=== PATIENT | female | born 1995 | race Caucasian/White ===

== ENCOUNTER → 2021-02-06 16:08 | Outpatient (CLI) | payer OTHER, SELFPAY ==
--- NOTE | 2021-02-06 16:14 | DI.US.S_ITS ---
PROCEDURE: US OB <= 14 WEEKS FETUS INDICATIONS: Viability Dating OUTSIDE/PRIOR DATING DATA: Last menstrual period (LMP): 12/17/2020. LMP-based estimated date of delivery (TY): 09/23/2021. First dating scan (date and location): 02/06/2021. Estimated date of delivery (TY) from first dating scan: 09/20/2021. TECHNIQUE: Real-time scanning was performed of the fetus and maternal pelvic organs, with image documentation. Endovaginal scanning was also performed to better visualize the fetus and maternal ovaries. COMPARISON: None. FINDINGS: Embryo: A gestational sac with a live fetus is present with a heart rate of 155. [place]-rump length is 1.4 centimeters corresponding with an age of 7 weeks 5 days. Measurement variability in dating: +/- 4 weeks by LMP, +/- 7 days by mean sac diameter (use before 6 weeks gestation if crown-rump length not able to be measured), +/- 5 days by crown-rump length (up to 8 weeks 6 days gestation), +/- 7 days by crown-rump length (up to 13 weeks 6 days gestation). Maternal organs: Ovaries are normal bilaterally. . IMPRESSION: Single live intrauterine with an estimated gestational age of 7 weeks 5 days by crown-rump length. Dictated by: Emigdio Melendez M.D. on 02/07/2021 at 11:01 Approved by: Emigdio Melendez M.D. on 02/07/2021 at 11:05
== END ==
PROVIDERS: PCP Family Medicine; Referring Provider Family Medicine; Visit Provider Family Medicine
DX: Z34.81 Encounter for supervision of other normal pregnancy, first trimester (principal); Z3A.01 Less than 8 weeks gestation of pregnancy
CPT/HCPCS: 76801

== ENCOUNTER 2021-02-07 09:54 | Emergency (ER) | payer OTHER, SELFPAY ==
[2021-02-07 09:55] VITALS: BP 122/76; PULSE 90; RESP 18; TEMP 36.9; O2SAT 98; BMI 32.4
--- NOTE | 2021-02-07 10:06 | ED.NAVMDI ---
HPI - Nausea/Vomiting/Diarrhea General Chief complaint: Nausea/Vomiting/Diarrhea Stated complaint: PUKING FOR OVER 24 HRS Time Seen by Provider: 02/07/21 10:01 Source: patient Mode of arrival: Ambulatory Limitations: no limitations History of Present Illness HPI Narrative: 25-year-old female nonsmoker without significant medical history is a at 8 weeks and just had reassuring ultrasound yesterday. She states that she has had persistent nausea and significant vomiting for almost the entire duration of this . She had similar trouble with her 1st but states it is slightly worse this time. She denies any pain or fever or chills. She denies any bloody vomit. She is not dizzy but does feel a bit weak and fatigued she has had no chest pain or shortness of breath. She has no abdominal or pelvic pain, bleeding, spotting, leakage of fluids, dysuria, frequency or urgency. She has not had any hospital visits for this during the thus far. MD complaint: nausea and vomiting Onset (ago): day(s) Description of Vomiting: food contents Description of Diarrhea: none Associated Abdominal Pain: No Severity: moderate Relieving factors: none Exacerbating factors: none Related Data Previous Rx's Medication Instructions Recorded ondansetron 4 mg PO TID-QID PRN #10 tab 02/07/21 Allergies Allergy/AdvReac Type Severity Reaction Status Date / Time No Known Drug Allergies Allergy Verified 02/07/21 10:03 Review of Systems Constitutional Constitutional: Denies chills, Denies fatigue, Denies fever(s), Denies frequent falls, Denies lethargy and Denies weakness Eyes Eyes: Denies change in vision, Denies eye discharge, Denies irritation and Denies loss of vision ENT Ears, Nose, Mouth, and Throat: Denies change in voice, Denies dizziness, Denies neck pain, Denies sore throat and Denies throat swelling Cardiovascular Cardiovascular: Denies chest pain, Denies irregular heart rhythm, Denies lightheadedness, Denies palpitations, Denies dyspnea, Denies dyspnea on exertion and Denies orthopnea Respiratory Respiratory: Denies cough, Denies dyspnea, Denies dyspnea on exertion and Denies wheezing Gastrointestinal Gastrointestinal: Denies abdominal pain, Denies change in bowel habits, Denies diarrhea, Reports nausea and Reports vomiting Musculoskeletal Musculoskeletal: Denies neck pain and Denies numbness Integumentary/Breasts Skin/Breast: Denies pruritus, Denies erythema, Denies rash and Denies wounds Neurologic Neurologic: Denies behavioral changes, Denies confusion, Denies dizziness, Denies frequent falls, Denies loss of vision, Denies numbness and Denies weakness Psychiatric Psychiatric: Denies anxiety, Denies behavioral changes, Denies confusion, Denies depression, Denies homicidal ideation and Denies suicidal ideation Endocrine Endocrine: Denies fatigue, Denies flushing and Denies palpitations Hematologic/Lymphatic Hematologic/Lymphatic: Denies easy bruising Allergic/Immunologic Allergic/Immunologic: Denies urticaria, Denies throat swelling and Denies wheezing Patient History Social History Smoking Status: Never smoker Smoking Status: Never smoker alcohol intake frequency: other Substance Use Type: does not use Exam Narrative Exam Narrative: GENERAL: [25] year old patient appears stated age. Well-nourished, well-developed patient, in mild distress. HEAD: Atraumatic. Normocephalic. EYES: Pupils equal round and reactive. Extraocular motions intact. No scleral icterus. No injection or drainage. ENT: Dry mucous membrane Nose without bleeding, purulent drainage. Throat without erythema, tonsillar hypertrophy or exudate. Airway patent. NECK: Trachea midline. Non tender CARDIOVASCULAR: Regular rate and rhythm without murmurs, gallops, or rubs. RESPIRATORY: Clear to auscultation. Breath sounds equal bilaterally. No wheezes, rales, or rhonchi. GASTROINTESTINAL: Abdomen soft, non-tender, nondistended. EXTREMITIES: No edema or joint tenderness. BACK: Nontender without deformity or crepitance. No flank tenderness. NEURO: AOx3. SKIN: No rash or erythema of visible areas Initial Vital Signs Initial Vital Signs: Vital Signs Temperature 98.5 F 02/07/21 09:55 Pulse Rate 90 02/07/21 09:55 Respiratory Rate 18 02/07/21 09:55 Blood Pressure 122/76 02/07/21 09:55 Pulse Oximetry 98 02/07/21 09:55 Course Orders Ordered: Discontinued Medications Sodium Chloride (Normal Saline 0.9%) 1,000 mls @ 1,000 mls/hr IV BOLUS ONE Stop: 02/07/21 11:00 Last Infusion: 02/07/21 11:51 Dose: 0 mls/hr Documented by: Admin: 02/07/21 10:15 Dose: 1,000 mls/hr Documented by: RACHELLE Ondansetron HCl (Ondansetron 4 Mg/2 Ml Inj) 4 mg IV NOW ONE Stop: 02/07/21 10:02 Last Admin: 02/07/21 10:16 Dose: 4 mg Documented by: RACHELLE Vital Signs Vital signs: Vital Signs - 8 hr 02/07/21 09:55 Temperature 98.5 F Pulse Rate 90 Respiratory Rate 18 Blood Pressure 122/76 Pulse Oximetry 98 MDM - Nausea/Vomiting/Diarrhea Lab Data Result diagrams: 02/07/21 10:13 02/07/21 10:13 Labs: Lab Results 02/07/21 02/07/21 Range/Units 10:13 10:13 WBC 10.9 (4.5-11.0) X10^3/uL RBC 4.51 (4.0-5.2) X10^6/uL Hgb 13.4 (12.0-16.0) g/dL Hct 38.9 (36-46) % MCV 86.3 (80-100) fL MCH 29.6 (26-34) PG MCHC 34.3 (30-36) % RDW 13.4 (11.6-14.8) % Plt Count 318 (150-400) X10^3/uL Neut % (Auto) 70.7 (50-75) % Lymph % (Auto) 22.1 L (25-40) % [place] % (Auto) 5.4 (3-14) % Eos % (Auto) 1.0 L (2-4) % Baso % (Auto) 0.8 (0-2) % Neut # (Auto) 7700 H (3584-6083) /uL Lymph # (Auto) 2400 (2494-9042) /uL [place] # (Auto) 600 (0-900) /uL Eos # (Auto) 100 (0-450) /uL Baso # (Auto) 100 (0-100) /uL Sodium 137 (137-145) mmol/L Potassium 3.8 (3.4-5.1) mmol/L Chloride 106 (98-107) mmol/L Carbon Dioxide 21 L (22-32) mmol/L BUN 9 (7-17) mg/dL Creatinine 0.49 L (0.52-1.04) mg/dL Estimated GFR > 60.0 (>60) mL/min BUN/Creatinine Ratio 18.4 (6-22) Glucose 96 (70-100) mg/dL Calcium 9.5 (8.4-10.2) mg/dL Ketones 0.36 H (<0.27) mmol/L Discharge Plan Departure Patient Disposition: Home Clinical Impression: Vomiting and diarrhea Instructions: DI for Hyperemesis Gravidarum, DI for Vomiting -- Adult Activity Restrictions/Additional Instructions: *You have been diagnosed with [vomiting and mild dehydration] *What to do: *Please continue to take your regular medications as directed. [x ] New medication prescriptions sent to your pharmacy: [[facility] in [place] ] [ ] New medication written as a paper prescription [ ] No new medications given *Please follow up with your primary care provider in 2-3 days, call for an appointment. Let them know you were seen in the Emergency Department and that we ask that you be seen in follow up. We will electronically transmit a record of today's note if your PCP is in our system *If you do not have a primary care provider please contact the [facility] Resource line at [phone]. They will ask some questions about your medical history and help get you set up with a doctor in the community. *Return to Emergency Department if you should have any new, worsening or concerning symptoms, such as [fever greater than 101 F, shaking chills, worsening pain, persistent vomiting or other bothersome symptoms] Prescriptions: New ondansetron 4 mg tablet,disintegrating 4 mg PO TID-QID PRN (Reason: nausea and vomiting) Qty: 10 RF: 0 Referrals: Brynn Amor DO [Primary Care Provider] -
[2021-02-07] MEDS: SODIUM CHLORIDE 0.9% 1,000 ML 1000 ML IV (10:15)
[2021-02-07] MEDS: ONDANSETRON 4 MG/2 ML INJ IV (10:16)
[2021-02-07 10:18] LABS: Add Manual Diff / Slide Review NO; Basophils Absolute Auto 100 /uL (0-100); Basophils Percent Auto 0.8 % (0-2); Eosinophils Absolute Auto 100 /uL (0-450); Hematocrit 38.9 % (36-46); Hemoglobin 13.4 g/dL (12.0-16.0); Lymphocytes Absolute Auto 2400 /uL (1100-4500); Lymphocytes Percent Auto 22.1 % (25-40); Mean Corpuscular HGB Conc 34.3 % (30-36); Mean Corpuscular Hemoglobin 29.6 PG (26-34); Mean Corpuscular Volume 86.3 fL (80-100); Monocytes Absolute Auto 600 /uL (0-900); Monocytes Percent Auto 5.4 % (3-14); Neutrophils Absolute Auto 7700 /uL (1500-7000); Neutrophils Percent Auto 70.7 % (50-75); Platelet Count 318 X10^3/uL (150-400); Red Blood Cell Count 4.51 X10^6/uL (4.0-5.2); Red Cell Distribution Width 13.4 % (11.6-14.8); White Blood Cell Count 10.9 X10^3/uL (4.5-11.0)
[2021-02-07 10:28] LABS: BUN Creatinine Ratio 18.4 (6-22); Blood Urea Nitrogen 9 mg/dL (7-17); Calcium 9.5 mg/dL (8.4-10.2); Carbon Dioxide 21 mmol/L (22-32); Chloride 106 mmol/L (98-107); Estimated Glomerular Filt Rate > 60.0 mL/min (>60); Glucose 96 mg/dL (70-100); HEMOLYSIS < 15 (0-50); Potassium 3.8 mmol/L (3.4-5.1); Sodium 137 mmol/L (137-145)
[2021-02-07 10:30] VITALS: BP 110/59; PULSE 86; O2SAT 98
[2021-02-07 10:31] LABS: Ketones (Beta-Hydroxybutyrate) 0.36 mmol/L (<0.27)
[2021-02-07 11:00] VITALS: BP 107/63; PULSE 84; O2SAT 100
[2021-02-07 11:30] VITALS: BP 106/59; PULSE 79; O2SAT 100
== END 2021-02-07 11:52 | disposition home or self-care (01) ==
PROVIDERS: Emergency Provider Emergency Medicine; PCP Family Medicine
DX: O21.9 Vomiting of pregnancy, unspecified (principal); R19.7 Diarrhea, unspecified; Z3A.08 8 weeks gestation of pregnancy
CPT/HCPCS: 36415; 80048; 82009; 85025; 96361; 96374; 99284; J2405

== ENCOUNTER 2021-03-26 11:31 | Emergency (ER) | payer OTHER, SELFPAY ==
[2021-03-26] VITALS (7 sets, daily range): BP systolic 95–115; BP diastolic 56–86; PULSE 83–95; RESP 15; TEMP 36.6; O2SAT 97–98; BMI 32.1
[2021-03-26 11:56] LABS: Add Manual Diff / Slide Review NO; Basophils Absolute Auto 100 /uL (0-100); Basophils Percent Auto 0.8 % (0-2); Eosinophils Absolute Auto 100 /uL (0-450); Hematocrit 39.5 % (36-46); Hemoglobin 13.3 g/dL (12.0-16.0); Lymphocytes Absolute Auto 2700 /uL (1100-4500); Lymphocytes Percent Auto 23.6 % (25-40); Mean Corpuscular HGB Conc 33.6 % (30-36); Mean Corpuscular Hemoglobin 29.2 PG (26-34); Mean Corpuscular Volume 86.9 fL (80-100); Monocytes Absolute Auto 600 /uL (0-900); Monocytes Percent Auto 5.2 % (3-14); Neutrophils Absolute Auto 8000 /uL (1500-7000); Neutrophils Percent Auto 69.4 % (50-75); Platelet Count 323 X10^3/uL (150-400); Red Blood Cell Count 4.55 X10^6/uL (4.0-5.2); White Blood Cell Count 11.6 X10^3/uL (4.5-11.0)
[2021-03-26 12:19] LABS: Alanine Aminotransferase 20 IU/L (<35); Albumin 4.3 g/dL (3.5-5.0); Albumin Globulin Ratio 1.3 (1.0-2.8); Alkaline Phosphatase 79 U/L (38-126); Aspartate Aminotransferase 27 IU/L (14-36); BUN Creatinine Ratio 18.4 (6-22); Bilirubin Total 0.8 mg/dL (0.2-1.3); Blood Urea Nitrogen 7 mg/dL (7-17); Carbon Dioxide 23 mmol/L (22-32); Chloride 108 mmol/L (98-107); Estimated Glomerular Filt Rate > 60.0 mL/min (>60); Globulin 3.4 g/dL (1.7-4.1); Glucose 89 mg/dL (70-100); HEMOLYSIS < 15 (0-50); Potassium 3.8 mmol/L (3.4-5.1); Sodium 137 mmol/L (137-145); Total Protein 7.7 g/dL (6.3-8.2)
[2021-03-26] MEDS: ONDANSETRON 4 MG/2 ML INJ IV (15:12)
--- NOTE | 2021-03-26 15:59 | ED.NAVMDI ---
HPI - Nausea/Vomiting/Diarrhea General Chief complaint: Nausea/Vomiting/Diarrhea Stated complaint: morning sickness really bad/ 15 weeks preg Time Seen by Provider: 03/26/21 15:57 Source: patient Mode of arrival: Ambulatory Limitations: no limitations History of Present Illness HPI Narrative: This is a 25-year-old female who is a at 14 weeks with complaint of morning sickness that has been progressively worsening. Patient states that she had morning sickness with her prior but this is been worse. She had multiple episodes of vomiting today does could keep anything orally down. She denies fevers. She denies any chest pain or shortness of breath. She will often get headache, be quite nauseated and then have intermittent emesis. She has been constipated but stooling. She is taking a laxative and stool softener and she relates that this is likely from her regular Zofran for morning sickness causing her constipation. She denies any pelvic cramping or abdominal pain. She denies any vaginal bleeding or discharge. She has will urinating 2 or 3 times daily on average. She states she is otherwise healthy. No regular medications. No major surgeries. Her care is through Dr. Amor. She has not had any other complications through her so far. Related Data Home Medications Medication Instructions Recorded Confirmed prenat.vits,erum,[id number] 1 tab PO DAILY 02/10/21 02/10/21 Previous Rx's Medication Instructions Recorded ondansetron 4 mg disintegrating 4 mg PO TID-QID PRN #30 tab 03/09/21 tablet metoclopramide HCl 10 mg tablet 10 mg PO Q6H PRN #10 tab 03/26/21 (Reglan) Allergies Allergy/AdvReac Type Severity Reaction Status Date / Time No Known Drug Allergies Allergy Verified 03/26/21 11:39 Review of Systems Review of Systems ROS Unobtainable: All systems reviewed & are unremarkable except as noted in HPI and below Patient History Medical History Anxiety Migraine (spontaneous vaginal delivery) (~03/06/18) Surgical History History of tonsillectomy [place] teeth extracted (~07/2020) Family History Mother Kidney stones FH: migraines Father Trauma Altered renal tissue perfusion Grandmother Cancer Breast cancer FH: migraines Grandfather No problems noted. Grandmother No problems noted. Grandfather No problems noted. 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 HEENT: Head normocephalic, atraumatic, EOMI, pupils reactive, face symmetric, moist mucous membranes NECK: Supple, full range of motion CARDIOVASCULAR: Regular rate and rhythm without murmurs, rubs or gallops. RESPIRATORY: Breath sounds equal bilaterally, no wheezes rales or rhonchi. ABDOMEN: Soft, nontender. Normoactive bowel sounds all 4 quadrants. No guarding or rebound, rigidity, no mass : No CVA tenderness EXTREMITIES: Normal range of motion, no clubbing or edema. Neurovascularly intact NEUROLOGICAL: Cranial nerves II through XII grossly intact. Moving all extremities SKIN: Warm, dry, no petechiae, no rashes or lesions. Initial Vital Signs Initial Vital Signs: Vital Signs Temperature 97.8 F 03/26/21 11:39 Pulse Rate 95 H 03/26/21 11:39 Respiratory Rate 15 03/26/21 11:39 Blood Pressure 115/86 03/26/21 11:39 Pulse Oximetry 98 03/26/21 11:39 Course Orders Ordered: ED Orders 03/26/21 11:45 CBC Auto Diff [Complete Blood Count AUTO DIFF] Stat Comprehensive Metabolic Panel Stat 03/26/21 17:10 Ictotest Urine Stat Urine Microscopic Stat Discontinued Medications Sodium Chloride (Normal Saline 0.9%) 1,000 mls @ 1,000 mls/hr IV BOLUS ONE Stop: 03/26/21 17:07 Last Infusion: 03/26/21 18:00 Dose: 0 mls/hr Documented by: Admin: 03/26/21 16:11 Dose: 1,000 mls/hr Documented by: KAREN Ondansetron HCl (Ondansetron 4 Mg/2 Ml Inj) 4 mg IV NOW ONE Stop: 03/26/21 11:51 Last Admin: 03/26/21 15:12 Dose: 4 mg Documented by: KAREN Reevaluation(s) Reevaluation #1: Patient feels better after fluids. Vital Signs Vital signs: Vital Signs - 8 hr 03/26/21 15:09 03/26/21 15:30 03/26/21 16:00 Pulse Rate 87 91 H 83 Blood Pressure 108/74 107/69 Pulse Oximetry 98 98 97 03/26/21 16:30 03/26/21 17:00 03/26/21 18:16 Pulse Rate 84 87 86 Blood Pressure 101/56 L 95/62 95/60 Pulse Oximetry 97 98 98 MDM - Nausea/Vomiting/Diarrhea Lab Data Result diagrams: 03/26/21 11:45 03/26/21 11:45 Labs: Lab Results 03/26/21 03/26/21 03/26/21 Range/Units 11:45 11:45 17:10 WBC 11.6 H (4.5-11.0) X10^3/uL RBC 4.55 (4.0-5.2) X10^6/uL Hgb 13.3 (12.0-16.0) g/dL Hct 39.5 (36-46) % MCV 86.9 (80-100) fL MCH 29.2 (26-34) PG MCHC 33.6 (30-36) % RDW 14.0 (11.6-14.8) % Plt Count 323 (150-400) X10^3/uL Neut % (Auto) 69.4 (50-75) % Lymph % (Auto) 23.6 L (25-40) % [place] % (Auto) 5.2 (3-14) % Eos % (Auto) 1.0 L (2-4) % Baso % (Auto) 0.8 (0-2) % Neut # (Auto) 8000 H (9198-7365) /uL Lymph # (Auto) 2700 (4109-8017) /uL [place] # (Auto) 600 (0-900) /uL Eos # (Auto) 100 (0-450) /uL Baso # (Auto) 100 (0-100) /uL Sodium 137 (137-145) mmol/L Potassium 3.8 (3.4-5.1) mmol/L Chloride 108 H (98-107) mmol/L Carbon Dioxide 23 (22-32) mmol/L BUN 7 (7-17) mg/dL Creatinine 0.38 L (0.52-1.04) mg/dL Estimated GFR > 60.0 (>60) mL/min BUN/Creatinine Ratio 18.4 (6-22) Glucose 89 (70-100) mg/dL Calcium 10.0 (8.4-10.2) mg/dL Total Bilirubin 0.8 (0.2-1.3) mg/dL AST 27 (14-36) IU/L ALT 20 (<35) IU/L Alkaline Phosphatase 79 (38-126) U/L Total Protein 7.7 (6.3-8.2) g/dL Albumin 4.3 (3.5-5.0) g/dL Globulin 3.4 (1.7-4.1) g/dL Albumin/Globulin Ratio 1.3 (1.0-2.8) Ur Bilirubin Confirm (Negative) Urine RBC 1-5/hpf (0-5/HPF) Urine WBC 1-5/hpf (0-5/HPF) Ur Squamous Epith Cells 5-10 /hpf H (0-5/HPF) Urine Bacteria Few (2-10) H (None) Urine Mucus 2+ H (Negative) Ur Culture Indicated? Cult not indicated 03/26/21 Range/Units 17:10 WBC (4.5-11.0) X10^3/uL RBC (4.0-5.2) X10^6/uL Hgb (12.0-16.0) g/dL Hct (36-46) % MCV (80-100) fL MCH (26-34) PG MCHC (30-36) % RDW (11.6-14.8) % Plt Count (150-400) X10^3/uL Neut % (Auto) (50-75) % Lymph % (Auto) (25-40) % [place] % (Auto) (3-14) % Eos % (Auto) (2-4) % Baso % (Auto) (0-2) % Neut # (Auto) (3228-7687) /uL Lymph # (Auto) (7437-2900) /uL [place] # (Auto) (0-900) /uL Eos # (Auto) (0-450) /uL Baso # (Auto) (0-100) /uL Sodium (137-145) mmol/L Potassium (3.4-5.1) mmol/L Chloride (98-107) mmol/L Carbon Dioxide (22-32) mmol/L BUN (7-17) mg/dL Creatinine (0.52-1.04) mg/dL Estimated GFR (>60) mL/min BUN/Creatinine Ratio (6-22) Glucose (70-100) mg/dL Calcium (8.4-10.2) mg/dL Total Bilirubin (0.2-1.3) mg/dL AST (14-36) IU/L ALT (<35) IU/L Alkaline Phosphatase (38-126) U/L Total Protein (6.3-8.2) g/dL Albumin (3.5-5.0) g/dL Globulin (1.7-4.1) g/dL Albumin/Globulin Ratio (1.0-2.8) Ur Bilirubin Confirm Positive H (Negative) Urine RBC (0-5/HPF) Urine WBC (0-5/HPF) Ur Squamous Epith Cells (0-5/HPF) Urine Bacteria (None) Urine Mucus (Negative) Ur Culture Indicated? Urine Dip Bedside Urine Glucose Negative Bedside Urine Bilirubin + 1 Bedside Urine Ketone +++ 80 Urine Specific [place] 1.030 Bedside Urine Occult Blood - Negative Bedside Urine pH 6 Bedside Urine Protein + 30 Bedside Urine Urobilinogen 1+ 2mg Bedside Urine Nitrite - Negative Bedside Urine Leukocytes - Negative Esterase MDM Narrative Medical decision making narrative: Patient here for morning sickness, patient possibly has hyperemesis. She does not have major lab abnormalities, improved after fluids with no additional emesis in the department. Urine does not show any signs of infection but was positive for ketones. Patient was offered prescription for Reglan she has been using Zofran, B6 and Unisom at home with minimal improvement. Discharge Plan Departure Patient Disposition: Home Clinical Impression: Morning sickness Instructions: DI for Hyperemesis Gravidarum Activity Restrictions/Additional Instructions: Follow-up with your physician in the next week for recheck. Continue home medications including your B6, Unisom and Zofran as needed. You may take Reglan 1 tablet every 6 hours as needed for nausea. Prescription sent to [facility] in [place]. Please return for fevers, worsening or persistent vomiting, lightheadedness or passing out, new chest pain or shortness of breath, abdominal pain, pelvic cramping, vaginal bleeding or discharge or other new or concerning symptoms. Prescriptions: New metoclopramide HCl [Reglan] 10 mg tablet 10 mg PO Q6H PRN (Reason: nausea and vomiting) Qty: 10 RF: 0 No Action ondansetron 4 mg tablet,disintegrating 4 mg PO TID-QID PRN (Reason: nausea and vomiting) Qty: 30 RF: 0 prenat.vits,erum,iqi-bzpu-qempl Tablet 1 tab PO DAILY RF: 0 Referrals: Brynn Amor DO [Primary Care Provider] -
--- NOTE | 2021-03-26 16:06 | PC.NURSE ---
15 weeks , persistent nausea/vomiting. Has had outpatient fluid infusions per pt report. Was unable to get into infusion clinic.
[2021-03-26] MEDS: SODIUM CHLORIDE 0.9% 1,000 ML 1000 ML IV (16:11)
[2021-03-26 17:46] LABS: Bacteria Urine Few (2-10); Ictotest Urine Positive (Negative); Mucus Urine 2+ (Negative); RBC Urine 1-5/HPF (0-5/HPF); Squamous Epithelial Cell Urine 5-10 /HPF (0-5/HPF); WBC Urine 1-5/HPF (0-5/HPF)
[2021-03-26 17:47] LABS: Culture Indicated Urine Cult Not Indicated
== END 2021-03-26 18:16 | disposition home or self-care (01) ==
PROVIDERS: Emergency Provider Emergency Medicine; PCP Family Medicine
DX: O21.0 Mild hyperemesis gravidarum (principal); Z3A.14 14 weeks gestation of pregnancy
CPT/HCPCS: 36415; 80053; 81003; 81015; 85025; 96361; 96374; 99284; J2405

== ENCOUNTER 2021-04-11 19:04 | Emergency (ER) | payer OTHER, SELFPAY ==
[2021-04-11 19:11] VITALS: BP 110/77; PULSE 111; RESP 18; TEMP 36.4; O2SAT 97; BMI 33.3
[2021-04-11] MEDS: ONDANSETRON 4 MG/2 ML INJ IV (19:34)
[2021-04-11] MEDS: SODIUM CHLORIDE 0.9% 1,000 ML 1000 ML IV ×2 (19:35→21:10)
--- NOTE | 2021-04-11 19:40 | PC.NURSE ---
17 weeks n/v in gets regular fluid boluses. Minimal to no relief with ODT zofran at home but usually responds to IV. Denies bleeding or abnormal vaginal discharge. Patient states minimal cramping.
[2021-04-11 22:39] LABS: Bacteria Urine Many (>30); Mucus Urine 1+ (Negative); RBC Urine 1-5/HPF (0-5/HPF); Squamous Epithelial Cell Urine 1-5 /HPF (0-5/HPF); WBC Urine 0-1/HPF (0-5/HPF)
[2021-04-11 22:40] LABS: Culture Indicated Urine Specimen Cultured
[2021-04-11 22:49] VITALS: BP 114/70; PULSE 90; RESP 16; O2SAT 98
--- NOTE | 2021-04-11 23:33 | ED_ITS ---
HPI - Nausea/Vomiting/Diarrhea General Chief complaint: Nausea/Vomiting/Diarrhea Stated complaint: N/V, cramping, 17 wks , dizziness Time Seen by Provider: 04/11/21 19:56 Source: patient Mode of arrival: Ambulatory Limitations: no limitations History of Present Illness HPI Narrative: 25-year-old currently at 17 weeks gestational age presents with related nausea and vomiting. She notes this has been an issue for her throughout this entire . She will have a couple of days of improved symptoms after IV hydration and then recurrent episodes of severe nausea with which she is unable to keep any solids or liquids down. She does have nausea medication available at home but notes that when she gets past a certain point these are not effective either. For the past 24 hours she has been vomiting incessantly and comes in for help with rehydration and control of her nausea. She reports no fevers, cough, chills, abdominal pain, contractions, leaking of vaginal fluid or vaginal discharge and no dysuria. She is just starting to notice the fetus moving and has not noticed any decrease in movement recently. Related Data Home Medications Medication Instructions Recorded Confirmed prenat.vits,erum,utp-wtps-sbydh 1 tab PO DAILY 02/10/21 02/10/21 Previous Rx's Medication Instructions Recorded ondansetron 4 mg disintegrating 4 mg PO TID-QID PRN #30 tab 03/09/21 tablet metoclopramide HCl 10 mg tablet 10 mg PO Q6H PRN #10 tab 04/08/21 (Reglan) Allergies Allergy/AdvReac Type Severity Reaction Status Date / Time No Known Drug Allergies Allergy Verified 03/26/21 11:39 Review of Systems Review of Systems Narrative: Remainder of complete review of systems is otherwise unremarkable except for that included in the HPI. Patient History Medical History Anxiety Migraine (spontaneous vaginal delivery) (~03/06/18) Surgical History History of tonsillectomy [place] teeth extracted (~07/2020) Family History Mother Kidney stones FH: migraines Father Trauma Altered renal tissue perfusion Grandmother Cancer Breast cancer FH: migraines Grandfather No problems noted. Grandmother No problems noted. Grandfather No problems noted. 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 heart tones at 150 per minute Neurologic: Grossly intact no obvious asymmetries or abnormalities Psych: appropriate insight and affect, cooperative Initial Vital Signs Initial Vital Signs: Vital Signs Temperature 97.5 F L 04/11/21 19:11 Pulse Rate 111 H 04/11/21 19:11 Respiratory Rate 18 04/11/21 19:11 Blood Pressure 110/77 04/11/21 19:11 Pulse Oximetry 97 04/11/21 19:11 Course Orders Ordered: ED Orders 04/11/21 22:15 Urine Culture Stat Urine Microscopic Stat Discontinued Medications Sodium Chloride (Normal Saline 0.9%) 1,000 mls @ 1,000 mls/hr IV BOLUS ONE Stop: 04/11/21 20:33 Last Infusion: 04/11/21 21:00 Dose: 0 mls/hr Documented by: Admin: 04/11/21 19:35 Dose: 1,000 mls/hr Documented by: BENEDICT Sodium Chloride (Normal Saline 0.9%) 1,000 mls @ 1,000 mls/hr IV BOLUS ONE Stop: 04/11/21 21:46 Last Infusion: 04/11/21 22:18 Dose: 0 mls/hr Documented by: Admin: 04/11/21 21:10 Dose: 1,000 mls/hr Documented by: KUMAR Ondansetron HCl (Ondansetron 4 Mg/2 Ml Inj) 4 mg IV NOW ONE Stop: 04/11/21 19:31 Last Admin: 04/11/21 19:34 Dose: 4 mg Documented by: BENEDICT Vital Signs Vital signs: Vital Signs - 8 hr 04/11/21 22:49 Pulse Rate 90 Respiratory Rate 16 Blood Pressure 114/70 Pulse Oximetry 98 MDM - Nausea/Vomiting/Diarrhea Lab Data Labs: Lab Results 04/11/21 Range/Units 22:15 Urine RBC 1-5/hpf (0-5/HPF) Urine WBC 0-1/hpf (0-5/HPF) Ur Squamous Epith Cells 1-5 /hpf (0-5/HPF) Urine Bacteria Many (>30) H (None) Urine Mucus 1+ H (Negative) Ur Culture Indicated? Specimen cultured Point of Care Testing Test Results Positive Urine Dip Bedside Urine Glucose Negative Bedside Urine Bilirubin + 1 Bedside Urine Ketone +++ 80 Urine Specific [place] 1.030 Bedside Urine Occult Blood +/- Bedside Urine pH 6 Bedside Urine Protein + 30 Bedside Urine Urobilinogen +/- 1mg Bedside Urine Nitrite - Negative Bedside Urine Leukocytes - Negative Esterase MDM Narrative Medical decision making narrative: 25-year-old woman with hyperemesis gravidarum. She is given 2 L of normal saline today along with Zofran followed by Reglan and is feeling significantly improved. She is able to drink a glass of water and some juice and is safe for home discharge. She has routine follow- up scheduled with her primary care provider. She has nausea medications available to her at home. Questions are answered. Discharge Plan Departure Patient Disposition: Home Clinical Impression: Acute vomiting Qualifiers: Weeks of gestation: 17 weeks Qualified Code(s): Z3A.17 - 17 weeks gestation of Instructions: DI for Hyperemesis Gravidarum Prescriptions: No Action ondansetron 4 mg tablet,disintegrating 4 mg PO TID-QID PRN (Reason: nausea and vomiting) Qty: 30 RF: 0 metoclopramide HCl [Reglan] 10 mg tablet 10 mg PO Q6H PRN (Reason: nausea and vomiting) Qty: 10 RF: 0 prenat.vits,erum,[id number]-[id number] Tablet 1 tab PO DAILY RF: 0 Referrals: Brynn Amor DO [Primary Care Provider] -
== END 2021-04-11 23:44 | disposition home or self-care (01) ==
PROVIDERS: Emergency Provider Emergency Medicine; PCP Family Medicine
DX: O21.0 Mild hyperemesis gravidarum (principal); Z3A.17 17 weeks gestation of pregnancy
CPT/HCPCS: 81003; 81015; 81025; 87077; 87086; 96361; 96374; 99284; J2405

== ENCOUNTER 2021-04-29 13:49 | Emergency (ER) | payer OTHER, SELFPAY ==
[2021-04-29 14:05] VITALS: BP 110/64; PULSE 103; RESP 24; TEMP 36.5; O2SAT 96
--- NOTE | 2021-04-29 14:23 | ED_ITS ---
HPI - Nausea/Vomiting/Diarrhea <Magno Jarrett PA-C - Last Filed: 05/01/21 07:10> General Chief complaint: Nausea/Vomiting/Diarrhea Stated complaint: vomiting since tuesday/trouble breathing/20wks preg Time Seen by Provider: 04/29/21 14:23 Source: patient Mode of arrival: Ambulatory History of Present Illness HPI Narrative: Deanne is a 25-year-old female who is approximately 20 weeks that is coming in today with persistent nausea and vomiting and an episode not being able to catch her breath earlier today. She reports that she has chronic nausea and vomiting and gets fluid and antiemetic infusions through her OB. She was scheduled to get an infusion today but because she had an episode where she felt like she could not catch her breath she decided to come here to the emergency department. She reports that this episode occurred at rest and lasted a few minutes. She also had significant nausea and 2 episodes of vomiting just prior to this. She denies any cough, chest pain, fever, sore throat, headache, neck stiffness or any other acute concerns or complaints at this time. Last void was this morning and reported as normal. Related Data Home Medications Medication Instructions Recorded Confirmed prenat.vits,erum,rth-hrht-shlxq 1 tab PO DAILY 02/10/21 02/10/21 Previous Rx's Medication Instructions Recorded ondansetron 4 mg disintegrating 4 mg PO TID-QID PRN #30 tab 03/09/21 tablet metoclopramide HCl 10 mg tablet 10 mg PO Q6H PRN #30 tab 04/17/21 (Reglan) promethazine 25 mg tablet 25 mg PO Q4-6H PRN #60 tab 04/29/21 Allergies Allergy/AdvReac Type Severity Reaction Status Date / Time No Known Drug Allergies Allergy Verified 03/26/21 11:39 Review of Systems <Magno Jarrett PA-C - Last Filed: 05/01/21 07:10> Review of Systems Narrative: As per HPI Patient History <Magno Jarrett PA-C - Last Filed: 05/01/21 07:10> Medical History Anxiety Migraine (spontaneous vaginal delivery) (~03/06/18) Surgical History History of tonsillectomy [place] teeth extracted (~07/2020) Family History Mother Kidney stones FH: migraines Father Trauma Altered renal tissue perfusion Grandmother Cancer Breast cancer FH: migraines Grandfather No problems noted. Grandmother No problems noted. Grandfather No problems noted. 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) Smoking Status: Former smoker alcohol intake frequency: holidays/special occasions only Substance Use Type: does not use Exam <Magno Jarrett PA-C - Last Filed: 05/01/21 07:10> Narrative Exam Narrative: Exam Narrative: Const General: cooperative, healthy appearing, comfortable, no acute distress, well developed and well groomed Nutritional Appearance: Elevated BMI Orientation: alert and oriented x3 HENMT Head: normal to inspection and atraumatic Ears: hearing grossly normal bilaterally Nose: external nose normal and nares normal Face and sinus: normal facial exam Neck Neck: normal visual inspection and supple Resp Effort & Inspection: normal respiratory effort, able to speak in complete sentences, no audible wheezes, not labored, no nasal flaring and no respiratory distress, clear to auscultation bilaterally Cardiac Regular rate and rhythm, no discernible murmurs, rubs or gallops. GI Nondistended, nontender to palpation, normal bowel sounds Neuro General: alert, oriented x3, gait normal, tone normal and moves all extremities Cognition: normal cognition Speech: speech normal Gait: normal gait Psych Appearance: grossly normal and well kempt Mental Status: mental status grossly normal Speech and Movement: speech and movement normal Mood: congruent mood Affect: normal affect Initial Vital Signs Initial Vital Signs: Vital Signs Temperature 97.7 F 04/29/21 14:05 Pulse Rate 103 H 04/29/21 14:05 Respiratory Rate 24 04/29/21 14:05 Blood Pressure 110/64 04/29/21 14:05 Pulse Oximetry 96 04/29/21 14:05 <Kaela Avila DO - Last Filed: 05/03/21 02:35> Initial Vital Signs Initial Vital Signs: Vital Signs Temperature 97.7 F 04/29/21 14:05 Pulse Rate 103 H 04/29/21 14:05 Respiratory Rate 24 04/29/21 14:05 Blood Pressure 110/64 04/29/21 14:05 Pulse Oximetry 96 04/29/21 14:05 Course <Magno Jarrett PA-C - Last Filed: 05/01/21 07:10> Orders Ordered: Discontinued Medications Sodium Chloride (Normal Saline 0.9%) 1,000 mls @ 1,000 mls/hr IV BOLUS ONE Stop: 04/29/21 16:50 Last Infusion: 04/29/21 18:19 Dose: 0 mls/hr Documented by: Admin: 04/29/21 16:29 Dose: 1,000 mls/hr Documented by: NITZA Ondansetron HCl (Ondansetron 4 Mg/2 Ml Inj) 4 mg IV Q2HR PRN PRN Reason: Nausea And Vomiting Last Admin: 04/29/21 16:29 Dose: 4 mg Documented by: NITZA Vital Signs Vital signs: Vital Signs - 8 hr 04/29/21 14:05 04/29/21 14:39 04/29/21 15:32 Temperature 97.7 F Pulse Rate 103 H 90 Respiratory Rate 24 24 20 Blood Pressure 110/64 Pulse Oximetry 96 94 99 04/29/21 16:34 Temperature Pulse Rate 82 Respiratory Rate 16 Blood Pressure 108/61 Pulse Oximetry 98 <Kaela Avila DO - Last Filed: 05/03/21 02:35> Orders Ordered: Discontinued Medications Sodium Chloride (Normal Saline 0.9%) 1,000 mls @ 1,000 mls/hr IV BOLUS ONE Stop: 04/29/21 16:50 Last Infusion: 04/29/21 18:19 Dose: 0 mls/hr Documented by: Admin: 04/29/21 16:29 Dose: 1,000 mls/hr Documented by: NITZA Ondansetron HCl (Ondansetron 4 Mg/2 Ml Inj) 4 mg IV Q2HR PRN PRN Reason: Nausea And Vomiting Last Admin: 04/29/21 16:29 Dose: 4 mg Documented by: NITZA Vital Signs Vital signs: Vital Signs - 8 hr 04/29/21 14:05 04/29/21 14:39 04/29/21 15:32 Temperature 97.7 F Pulse Rate 103 H 90 Respiratory Rate 24 24 20 Blood Pressure 110/64 Pulse Oximetry 96 94 99 04/29/21 16:34 Temperature Pulse Rate 82 Respiratory Rate 16 Blood Pressure 108/61 Pulse Oximetry 98 MDM - Nausea/Vomiting/Diarrhea <Magno Jarrett PA-C - Last Filed: 05/01/21 07:10> Lab Data Labs: Lab Results 04/29/21 Range/Units 14:30 SARS-CoV-2 (PCR) Negative (Negative) MDM Narrative Medical decision making narrative: Differential diagnosis includes pulmonary embolism, coronary artery dissection, aspiration pneumonia, panic attack. Patient is well-appearing at this time. Perc rule applied to the patient and she tests negative. This suggests a very low likelihood of pulmonary embolism. She currently does not have any symptoms at this time. She was given some fluids and antinausea medication. She is encouraged to follow up with her OB at this time. ER return precautions were discussed with the patient. Patient verbalizes understanding and agrees to plan and has no further concerns at this time. Thank you A [id number] system was used with the dictation of this note. Please disregard any spelling or grammatical errors. <Kaela Avila, - Last Filed: 05/03/21 02:35> Lab Data Labs: Lab Results 04/29/21 Range/Units 14:30 SARS-CoV-2 (PCR) Negative (Negative) Discharge Plan Departure Patient Disposition: Home Clinical Impression: Nausea and vomiting during Activity Restrictions/Additional Instructions: It was nice to meet you this afternoon. Your evaluation today has been reassuring. Please follow-up with your OB for your continued nausea. Do not hesitate return to the emergency department if symptoms become worse. Thank you Magno Jarrett PAC Prescriptions: No Action metoclopramide HCl [Reglan] 10 mg tablet 10 mg PO Q6H PRN (Reason: nausea and vomiting) Qty: 30 RF: 0 ondansetron 4 mg tablet,disintegrating 4 mg PO TID-QID PRN (Reason: nausea and vomiting) Qty: 30 RF: 0 promethazine 25 mg tablet 25 mg PO Q4-6H PRN (Reason: nausea and vomiting) Qty: 60 RF: 0 prenat.vits,erum,bch-lzoe-vedvj Tablet 1 tab PO DAILY RF: 0 Referrals: Brynn Amor DO [Primary Care Provider] - <Kaela Avila DO - Last Filed: 05/03/21 02:35> Cosign ED Attending Yordanature Attestation: I was immediately available in the department for consultation. Documentation has been reviewed. Patient was sent to OB initially for monitoring then returned to ED for workup/evaluation.
[2021-04-29 14:39] VITALS: RESP 24; O2SAT 94
[2021-04-29 14:55] LABS: COVID19 -Nasal RAPID Negative (Negative)
[2021-04-29 15:32] VITALS: PULSE 90; RESP 20; O2SAT 99
[2021-04-29] MEDS: SODIUM CHLORIDE 0.9% 1,000 ML 1000 ML IV (16:29)
[2021-04-29] MEDS: ONDANSETRON 4 MG/2 ML INJ IV (16:29)
[2021-04-29 16:34] VITALS: BP 108/61; PULSE 82; RESP 16; O2SAT 98
== END 2021-04-29 18:50 | disposition home or self-care (01) ==
PROVIDERS: Emergency Provider Physician Assistant; PCP Family Medicine
DX: O21.9 Vomiting of pregnancy, unspecified (principal); Z3A.20 20 weeks gestation of pregnancy; Z20.822 Contact with and (suspected) exposure to COVID-19
CPT/HCPCS: 36415; 87635; 96361; 96374; 99284; C9803; J2405

== ENCOUNTER → 2021-05-07 09:15 | Outpatient (CLI) | payer OTHER, SELFPAY ==
--- NOTE | 2021-05-07 09:17 | DI.US.S_ITS ---
PROCEDURE: US OB >= 14 WEEKS FETUS INDICATIONS: ANATOMY OUTSIDE/PRIOR DATING DATA: Last menstrual period (LMP): 12/17/2020. LMP-based estimated date of delivery (TY): 09/23/2021 . First dating scan (date and location): 02/06/2021 . Estimated date of delivery (TY) from first dating scan: 09/20/2021 . TECHNIQUE: Real-time scanning was performed of the fetus, with image documentation and biometric measurements. Endovaginal scanning: No COMPARISON: [facility], OB <= 14 WEEKS FETUS, 02/06/2021, 15:28. FINDINGS: General: A single living intrauterine gestation is present. Presentation: Variable. Placenta: Placental position is anterior left lateral , without previa. Amniotic fluid index: 21.2 cm, normal range is 5-24 cm. heart rate: 162 beats per minute. Maternal cervical canal: Size 7.0 cm long. Normal lower limit is 2.5 cm. biometrics: Biparietal diameter: 20 weeks 6 days Head circumference: 21 weeks Abdominal circumference: 21 weeks 4 days Femur length: 21 weeks 3 days Estimated gestational age from initial scan: 20 weeks 4 days Composite gestational age from present scan: 21 weeks 2 days Estimated weight and percentile: 420 g; 86 percentile Measurement variability for biometric dating: +/- 7 days from 14 weeks to 15 weeks 6 days gestation, +/- 10 days from 16 weeks to 21 weeks 6 days gestation, +/- 2 weeks from 22 weeks to 27 weeks 6 days gestation, +/- 3 weeks for 28 weeks gestation or later. weight reference: 4500 g or EFW >90/95% is considered macrosomia or large for gestational age. EFW <10% is small for gestational age. EFW 5% or less is considered intra-uterine growth restriction. Anatomic survey: Neuro: Ventricles are non-dilated at less than 10 mm. Cisterna magna is normal at 3-11 mm. Cerebellum is normal in size and morphology. Nuchal skin fold: Normal at less than 6 mm between 14-21 weeks gestational age. Face: Nose and lips, facial profile are normal. Spine: No evidence for spina bifida. Heart: 4-chambered heart is present, with normal ventricular outflow tracts. Diaphragm: Diaphragm is intact. Stomach: Left-sided stomach is present. Kidneys: Bilateral renal pyelectasis with the right renal pelvis measuring 8.7 mm and the left 6.7 mm. Cord: 3-vessel cord has orthotopic insertion. Bladder: Normal in size. Extremities: All 4 extremities identified. IMPRESSION: 1. Single living IUP redemonstrated and interval growth is upper limits of normal. 2. Bilateral renal pyelectasis; otherwise normal anatomic survey. Follow-up recommended. Dictated by: Magno SINGH Interpreted: Surjit Mcclure MD on 05/07/2021 at 10:53 Transcribed by: KALLI on 05/07/2021 at 10:56 Approved by: Surjit Mcclure M.D. on 05/07/2021 at 11:45
== END ==
PROVIDERS: PCP Family Medicine; Referring Provider Family Medicine; Visit Provider Family Medicine
DX: Z36.89 Encounter for other specified antenatal screening (principal); Z3A.21 21 weeks gestation of pregnancy
CPT/HCPCS: 76811

== ENCOUNTER → 2021-06-08 12:07 | Outpatient (CLI) | payer OTHER, SELFPAY ==
--- NOTE | 2021-06-08 12:07 | DI.US.S_ITS ---
PROCEDURE: US OB FOLLOW UP INDICATIONS: PYELECTASIS OUTSIDE/PRIOR DATING DATA: Last menstrual period (LMP): 12/17/2020 . LMP-based estimated date of delivery (TY): 09/23/2021 . First dating scan (date and location): 02/06/2021, [facility] . Estimated date of delivery (TY) from first dating scan, 09/20/2021 . TECHNIQUE: Real-time scanning was performed of the fetus, with image documentation and biometric measurements. Endovaginal scanning: Not performed COMPARISON: [facility], OB >= 14 WEEKS FETUS, 05/07/2021, 9:29. [facility], OB <= 14 WEEKS FETUS, 02/06/2021, 15:28. FINDINGS: General: A single living intrauterine gestation is present. Presentation: Cephalic/oblique. Placenta: Placental position is anterior , without previa. Amniotic fluid index: 16.9 cm, normal range is 5-24 cm. heart rate: 155 beats per minute. Maternal cervical canal: 4.9 cm long. Normal lower limit is 2.5 cm. kidneys: No prior study available for comparison which demonstrates pelvicaliectasis. Left renal pelvis measures 7.8 mm. Right renal pelvis measures 6.2 mm. Most recent previous measurements were 8.7 mm on the right and 6.7 mm on the left. IMPRESSION: 1. Living late 2nd trimester intrauterine . Continued bilateral renal pyelectasis. Recommend repeat ultrasound in 3-4 weeks. Dictated by: Miguel Lemon M.D. on 06/08/2021 at 15:50 Approved by: Miguel Lemon M.D. on 06/08/2021 at 15:57
== END ==
PROVIDERS: PCP Family Medicine; Referring Provider Family Medicine; Visit Provider Family Medicine
DX: O35.8XX0 Maternal care for other (suspected) fetal abnormality and damage, not applicable or unspecified (principal)
CPT/HCPCS: 76816

== ENCOUNTER → 2021-06-16 10:10 | Outpatient (CLI) | payer OTHER, SELFPAY ==
[2021-06-16 12:01] LABS: Hematocrit 33.1 % (36-46); Hemoglobin 10.9 g/dL (12.0-16.0)
[2021-06-16 12:45] LABS: GTT (PREG) 1 Hour PP 50gm Dose 103 mg/dL (76-139)
== END ==
PROVIDERS: PCP Family Medicine; Referring Provider Family Medicine; Visit Provider Family Medicine
DX: Z34.82 Encounter for supervision of other normal pregnancy, second trimester (principal); Z3A.26 26 weeks gestation of pregnancy
CPT/HCPCS: 36415; 82950; 85014; 85018

== ENCOUNTER → 2021-07-08 12:02 | Outpatient (CLI) | payer OTHER, SELFPAY ==
[2021-07-08 12:36] LABS: Bilirubin Urine UA NEGATIVE (NEGATIVE); Color Urine UA YELLOW; Leukocyte Esterase Urine UA 3+ (NEGATIVE); Nitrite Urine UA NEGATIVE (Negative); Occult Blood Urine UA TRACE-INTACT (Negative); Protein Urine UA TRACE (Negative); Urobilinogen Urine UA 0.2 E.U./dL (0.2)
[2021-07-08 12:48] LABS: Glucose Urine UA TRACE g/dL (Negative); Ketones Urine UA TRACE (NEGATIVE)
[2021-07-08 12:49] LABS: Appearance Urine UA Cloudy; pH Urine UA 6.5 (4.5-8.0)
[2021-07-08 12:50] LABS: Bacteria Urine Many (>30); Culture Indicated Urine Specimen Cultured; Mucus Urine 2+ (Negative); RBC Urine 0-1/HPF (0-5/HPF); Squamous Epithelial Cell Urine 1-5 /HPF (0-5/HPF); Transitional Epi Cells Urine 5-10/HPF (0-5/HPF); WBC Urine 10-30/HPF (0-5/HPF)
== END ==
PROVIDERS: PCP Family Medicine; Referring Provider Family Medicine; Visit Provider Family Medicine
DX: Z34.81 Encounter for supervision of other normal pregnancy, first trimester (principal); R30.0 Dysuria
CPT/HCPCS: 81001; 87086

== ENCOUNTER → 2021-08-14 12:57 | Outpatient (CLI) | payer OTHER, SELFPAY ==
--- NOTE | 2021-08-14 12:59 | DI.US.S_ITS ---
PROCEDURE: US OB FOLLOW UP INDICATIONS: follow up scan from 06/08 OUTSIDE/PRIOR DATING DATA: Last menstrual period (LMP): 12/17/20 . LMP-based estimated date of delivery (TY): 09/23/21 . First dating scan (date and location): 02/06/21 . Estimated date of delivery (TY) from first dating scan: 09/20/21 . TECHNIQUE: Real-time scanning was performed of the fetus, with image documentation and biometric measurements. Endovaginal scanning: Not performed COMPARISON: [facility], OB >= 14 WEEKS FETUS, 05/07/2021, 9:29. [facility], OB <= 14 WEEKS FETUS, 02/06/2021, 15:28. [facility], OB FOLLOW UP, 06/08/2021, 12:15. FINDINGS: General: A single living intrauterine gestation is present. Presentation: Cephalic. Placenta: Placental position is anterior , without previa. Amniotic fluid index: 24.1 cm, normal range is 5-24 cm. Largest pocket measures 11.3 cm heart rate: 139 beats per minute. Maternal cervical canal: 3.5 cm long. Normal lower limit is 2.5 cm. Other: There is bilateral pelviectasis measuring 7.2 and 7.5 mm on the right and left, respectively. IMPRESSION: Single living intrauterine fetus in cephalic presentation. Polyhydramnios. Bilateral pelviectasis as before. Dictated by: Bryan Partida M.D. on 08/14/2021 at 16:06 Approved by: Bryan Partida M.D. on 08/14/2021 at 16:08
== END ==
PROVIDERS: PCP Family Medicine; Referring Provider Family Medicine; Visit Provider Family Medicine
DX: O35.8XX0 Maternal care for other (suspected) fetal abnormality and damage, not applicable or unspecified (principal); O40.9XX0 Polyhydramnios, unspecified trimester, not applicable or unspecified
CPT/HCPCS: 76816

== ENCOUNTER → 2021-08-25 09:40 | Outpatient (CLI) | payer OTHER, SELFPAY ==
[2021-08-26 21:47] LABS: Strep Grp B PCR NEG for Grp B Strep
== END ==
PROVIDERS: PCP Family Medicine; Visit Provider Family Medicine
DX: Z34.93 Encounter for supervision of normal pregnancy, unspecified, third trimester (principal); Z3A.36 36 weeks gestation of pregnancy
CPT/HCPCS: 87653

== ENCOUNTER 2021-08-25 10:13 | Outpatient (CLI) | payer OTHER, SELFPAY ==
--- NOTE | 2021-08-25 | DI.US.S_ITS ---
PROCEDURE: US OB BIOPHYSICAL PROFILE INDICATIONS: POLYHYDRAMNIOS OUTSIDE/PRIOR DATING DATA: Last menstrual period (LMP): December 17, 2020. LMP-based estimated date of delivery (TY): September 23, 2021. First dating scan (date and location): February 06, 2021. Estimated date of delivery (TY) from first dating scan: September 20, 2021. The calculations are made using the ultrasound TY of September 20, 2021. TECHNIQUE: Real-time scanning was performed of the fetus for biophysical profile, with image documentation. Endovaginal scanning: Not performed COMPARISON: [facility], OB FOLLOW UP, 08/14/2021, 14:30. FINDINGS: General: A single living intrauterine gestation is present. Presentation: Cephalic. Placenta: Placental position is anterior , without previa. Amniotic fluid index: 27.7 cm, normal range is 5-24 cm. Single deepest vertical pocket is 8.8 cm. Diffusely scattered echogenic debris noted within the amniotic fluid. heart rate: 137 beats per minute. Maternal cervical canal: 3.3 cm long. Normal lower limit is 2.5 cm. Estimated gestational age from initial scan: 36 weeks and 2 days Biophysical profile: Tone: 2 points. Movement: 2 points. Respiration: 2 points. Largest pocket of fluid: 2 points. IMPRESSION: Single living intrauterine gestation with estimated sonographic gestational age of approximately 36 weeks and 2 days. Redemonstration of polyhydramnios with four-quadrant KELSEY measuring 27.7 cm and largest vertical pocket measuring 8.8 cm. Biophysical profile score of 8 out of 8. Redemonstration of bilateral renal pelviectasis measuring less than 10 mm. Recommend follow-up renal ultrasound between 48 hours to 1 month after as well as an additional ultrasound obtained 1-6 months later. We strive to produce accurate, complete, and clear reports of imaging services. To assist us in improving patient care, this report was composed using standard report templates and voice recognition software. Therefore, it may contain abnormal punctuation, insertions and/or omissions. Occasional wrong-word or sound-alike substitutions may occur. Though we review the report and make efforts to correct it, we do recommend that the report be read carefully in proper context to recognize any text inaccuracies. Dictated by: Derrick Hu M.D. on 08/25/2021 at 12:07 Approved by: Derrick Hu M.D. on 08/25/2021 at 12:24
--- NOTE | 2021-08-25 12:08 | PM.OBTRLD ---
Visit Information Visit Information Date of evaluation: 08/25/21 Primary OB Provider: Brynn Amor Reason for Evaluation: Yes non-stress test non-stress test reason: other (polyhydramnios) Comments/Additional reasons for admission: 25 year old at 36 weeks and 4 days with polyhydramnios. Recent US to follow up pyelectasis was significant for KELSEY of 24.1. She presented today for follow up and was measuring ahead with fundal height. Denies leaking or bleeding. She has been having frequent Robert-Brandon contractions. Vital Signs Vital Signs: Temperature 36.5? blood pressure 121/70 heart rate 120 PFSH Medical History Anxiety Migraine (spontaneous vaginal delivery) (~03/06/18) Surgical History History of tonsillectomy [place] teeth extracted (~07/2020) Family History Mother Kidney stones FH: migraines Father Trauma Altered renal tissue perfusion Grandmother Cancer Breast cancer FH: migraines Grandfather No problems noted. Grandmother No problems noted. Grandfather No problems noted. Sister FH: migraines Social History marital status: (Has not changed her maiden name yet) number of children: 1 household members: spouse and children lives independently: Yes pets and animals: Yes (X 2 dogs and X 1 cat (aware) ) education level: high school occupational status: unemployed (Baby sits other Toddlers in her home) current occupational exposures/hazards: No special terrie needs: No Smoking Status: Former smoker second hand exposure: No alcohol intake: former (pre- : rare/social) substance use type: does not use Type(s) of exercise: weight lifting (aware of risks and has a personal banking representative) Evaluation Evaluation Baseline heart rate: 140 Variability: Moderate (11-25) monitor accelerations: Present Monitor Decelerations: Absent Uterine Contraction Intensity: Mild Category of Tracing: Reactive Diagnosis, Plan/Disposition Final Diagnosis (1) 36 weeks gestation of : Status: Acute (2) Polyhydramnios: Status: Acute Plan/Disposition Plan: 25 year old at 36 weeks and 4 days with idiopathic mild polyhydramnios. BPP 8/8 and NST reactive. Will continue weekly BPP and NST. Plan for induction at 39 weeks. OB Disposition: home
== END 2021-08-25 12:12 | disposition home or self-care (01) ==
LOC: OB 08-26 07:28
PROVIDERS: PCP Family Medicine; Referring Provider Family Medicine; Visit Provider Family Medicine
DX: O40.3XX0 Polyhydramnios, third trimester, not applicable or unspecified (principal); O47.03 False labor before 37 completed weeks of gestation, third trimester; Z3A.36 36 weeks gestation of pregnancy; Z34.93 Encounter for supervision of normal pregnancy, unspecified, third trimester
CPT/HCPCS: 59025; 76819; 87653; G0378; G0379

== ENCOUNTER 2021-08-31 10:32 | Observation (INO) | payer OTHER, SELFPAY ==
--- NOTE | 2021-08-31 10:43 | DI.US.S_ITS ---
PROCEDURE: US OB LIMITED INDICATIONS: EFW OUTSIDE/PRIOR DATING DATA: Last menstrual period (LMP): 12/17/20. LMP-based estimated date of delivery (TY): 09/23/21. First dating scan (date and location): 02/06/21. Estimated date of delivery (TY) from first dating scan: 09/20/21. The calculations are made using the 1st trimester sonogram derived TY of 09/20/21. TECHNIQUE: Real-time scanning was performed of the fetus, with image documentation and biometric measurements. Endovaginal scanning: No COMPARISON: [facility], , OB <= 14 WEEKS FETUS, 02/06/2021, 15:28. FINDINGS: General: A single living intrauterine gestation is present. Presentation: Breech with head in the left upper quadrant. Placenta: Placental position is anterior , without previa. Amniotic fluid index: 30.7 cm, normal range is 5-24 cm. Single deepest vertical pocket is 10.5 cm. heart rate: 143 beats per minute. Maternal cervical canal: Not seen biometrics: Biparietal diameter: 9.4 cm, 38 weeks, two days, 89th percentile Head circumference: 35.9 cm, out of range, 99th percentile Abdominal circumference: 35.4 cm, 39 weeks, two days, 98th percentile Femur length: 7.6 cm, 38 weeks, five days, 84th percentile Clinically estimated gestational age: 37 weeks, one day Composite gestational age from present scan: 38 weeks, five days Estimated weight and percentile: 3759 g +/-556 g, 96 percentile Biophysical profile: tone: 2/2 breathin/2 movement: 2/2 Amniotic Fluid: 2/2 Total score 8/8 IMPRESSION: 1. Single live intrauterine with a normal biophysical profile score of 8/8. 2. Estimated weight is at the 96th percentile. 3. There is continued polyhydramnios with an amniotic fluid index of 30.7 cm. 4. Breech presentation. We strive to produce accurate, complete, and clear reports of imaging services. To assist us in improving patient care, this report was composed using standard report templates and voice recognition software. Therefore, it may contain abnormal punctuation, insertions and/or omissions. Occasional wrong-word or sound-alike substitutions may occur. Though we review the report and make efforts to correct it, we do recommend that the report be read carefully in proper context to recognize any text inaccuracies. Dictated by: Denae Sierra M.D. on 08/31/2021 at 13:19 Approved by: Denae Sierra M.D. on 08/31/2021 at 13:29
--- NOTE | 2021-08-31 11:14 | P.TNLD_ITS ---
Visit Information Visit Information Date of evaluation: 08/31/21 Primary OB Provider: Brynn Amor Reason for Evaluation: Yes non-stress test non-stress test reason: other (Idiopathic polyhydramnios) Vital Signs Vital Signs: Temperature 36.3? blood pressure 126/83 heart rate 103 PFSH Medical History Anxiety Migraine (spontaneous vaginal delivery) (~03/06/18) Surgical History History of tonsillectomy [place] teeth extracted (~07/2020) Family History Mother Kidney stones FH: migraines Father Trauma Altered renal tissue perfusion Grandmother Cancer Breast cancer FH: migraines Grandfather No problems noted. Grandmother No problems noted. Grandfather No problems noted. Sister FH: migraines Social History marital status: (Has not changed her maiden name yet) number of children: 1 household members: spouse and children lives independently: Yes pets and animals: Yes (X 2 dogs and X 1 cat (aware) ) education level: high school occupational status: unemployed (Baby sits other Toddlers in her home) current occupational exposures/hazards: No special terrie needs: No Smoking Status: Former smoker second hand exposure: No alcohol intake: former (pre- : rare/social) substance use type: does not use Type(s) of exercise: weight lifting (aware of risks and has a sports trainer) Evaluation Evaluation Baseline heart rate: 145 Variability: Moderate (11-25) monitor accelerations: Present Monitor Decelerations: Absent Contraction Frequency (minutes): 3 Uterine Contraction Intensity: Mild Category of Tracing: Reactive Diagnosis, Plan/Disposition Final Diagnosis (1) 37 weeks gestation of : Status: Acute (2) Polyhydramnios: Status: Acute Plan/Disposition Plan: 25-year-old at 37 weeks gestation here for NST and BPP due to idiopathic polyhydramnios. She was asked to start monitoring blood sugars for possible late development of gestational diabetes however fasting and 1 hour postprandial blood sugars have been normal. KELSEY was 30 today and BPP 8/8. Estimated weight 3759 g which is 96 percentile. Unfortunately baby is now breech. Patient is scheduled for a version with Dr. Trejo on 09/03/21 at 6:45 a.m.. She will also try spinning baby positions at home to see if he flips before then. He has previously been vertex on every other ultrasound until today. OB Disposition: home
== END 2021-08-31 12:40 | disposition home or self-care (01) ==
PROVIDERS: Admitting Provider Family Medicine; PCP Family Medicine; Referring Provider Family Medicine; Visit Provider Family Medicine
DX: O40.3XX0 Polyhydramnios, third trimester, not applicable or unspecified (principal); Z3A.37 37 weeks gestation of pregnancy
CPT/HCPCS: 59025; 76815; 76819; G0378; G0379

== ENCOUNTER 2021-09-04 11:52 | Outpatient (CLI) | payer OTHER, SELFPAY ==
--- NOTE | 2021-09-04 13:17 | PM.OBTRLD ---
Visit Information Visit Information Date of evaluation: 09/04/21 Primary OB Provider: Brynn Amor Reason for Evaluation: Yes non-stress test non-stress test reason: other (External version) Vital Signs Vital Signs: Blood pressure 137/104 pulse 115 Repeat blood pressure 118/77 pulse 102 PFSH Medical History Anxiety Migraine (spontaneous vaginal delivery) (~03/06/18) Surgical History History of tonsillectomy [place] teeth extracted (~07/2020) Family History Mother Kidney stones FH: migraines Father Trauma Altered renal tissue perfusion Grandmother Cancer Breast cancer FH: migraines Grandfather No problems noted. Grandmother No problems noted. Grandfather No problems noted. Sister FH: migraines Social History marital status: (Has not changed her maiden name yet) number of children: 1 household members: spouse and children lives independently: Yes pets and animals: Yes (X 2 dogs and X 1 cat (aware) ) education level: high school occupational status: unemployed (Baby sits other Toddlers in her home) current occupational exposures/hazards: No special terrie needs: No Smoking Status: Former smoker second hand exposure: No alcohol intake: former (pre- : rare/social) substance use type: does not use Type(s) of exercise: weight lifting (aware of risks and has a personalized living manager nurse) Evaluation Evaluation Baseline heart rate: 130 Variability: Moderate (11-25) monitor accelerations: Present Monitor Decelerations: Absent Contraction Frequency (minutes): 3 Uterine Contraction Intensity: Mild Category of Tracing: Reactive Diagnosis, Plan/Disposition Final Diagnosis (1) 38 weeks gestation of : Status: Acute (2) Polyhydramnios: Status: Acute Plan/Disposition Plan: 25-year-old at 38 weeks gestation here for external cephalic version however infant was found to be vertex. NST reactive. She was karlo quite frequently though not painfully. Follow-up next week in clinic as scheduled. She is also scheduled for induction on 09/11. OB Disposition: home
== END 2021-09-04 13:45 | disposition home or self-care (01) ==
LOC: LABOR 13:14 → OB 09-09 13:41
PROVIDERS: PCP Family Medicine; Referring Provider Family Medicine; Visit Provider Family Medicine
DX: O40.3XX0 Polyhydramnios, third trimester, not applicable or unspecified (principal); Z3A.38 38 weeks gestation of pregnancy
CPT/HCPCS: 59025; G0378; G0379

== ENCOUNTER 2021-09-08 10:21 | Outpatient (CLI) | payer OTHER, SELFPAY ==
--- NOTE | 2021-09-08 10:42 | DI.US.S_ITS ---
PROCEDURE: US OB LIMITED INDICATIONS: KELSEY OUTSIDE/PRIOR DATING DATA: Last menstrual period (LMP): 12/17/2020. LMP-based estimated date of delivery (TY): 09/23/2021. First dating scan (date and location): 02/06/2021. Estimated date of delivery (TY) from first dating scan: 09/20/2021. The calculations are made using the ultrasound TY of 09/20/2021. TECHNIQUE: Real-time scanning was performed of the fetus, with image documentation. Endovaginal scanning: Not performed COMPARISON: [facility], OB LIMITED, 08/31/2021, 11:16. FINDINGS: A single living intrauterine gestation is present. Presentation: Vertex. Placenta: Placental position is anterior, without previa. Amniotic fluid index: 34.1 cm, normal range is 5-24 cm. Single deepest vertical pocket is 9.6 cm. heart rate: 153 beats per minute. Maternal cervical canal: Not well seen. Clinically estimated gestational age: 38 weeks 2 days bladder is prominent. Right renal pelvis measures 9.4 mm. Left renal pelvis measures 7.2 mm. IMPRESSION: 1. Anand living intrauterine at 38 weeks 2 days based on prior ultrasound. 2. Normal placenta. KELSEY 34.1 cm. Largest pocket 9.6 cm. Findings consistent with polyhydramnios. 3. renal pelviectasis. -Recommend renal ultrasound. Dictated by: Freddy Samaniego M.D. on 09/08/2021 at 12:06 Approved by: Freddy Samaniego M.D. on 09/08/2021 at 12:12
== END 2021-09-08 11:00 | disposition home or self-care (01) ==
LOC: LABOR 10:59 → OB 09-10 13:38
PROVIDERS: PCP Family Medicine; Referring Provider Family Medicine; Visit Provider Family Medicine
DX: O40.3XX0 Polyhydramnios, third trimester, not applicable or unspecified (principal); Z3A.38 38 weeks gestation of pregnancy
CPT/HCPCS: 59025; 76815; G0378; G0379

== ENCOUNTER 2021-09-10 19:45 | Inpatient (IN) | payer OTHER, SELFPAY ==
[2021-09-10 21:49] LABS: Add Manual Diff / Slide Review NO; Basophils Absolute Auto 0 /uL (0-100); Basophils Percent Auto 0.4 % (0-2); Eosinophils Absolute Auto 100 /uL (0-450); Eosinophils Percent Auto 0.7 % (2-4); Hematocrit 30.6 % (36-46); Hemoglobin 10.1 g/dL (12.0-16.0); Lymphocytes Absolute Auto 2800 /uL (1100-4500); Lymphocytes Percent Auto 24.7 % (25-40); Mean Corpuscular HGB Conc 33.1 % (30-36); Mean Corpuscular Hemoglobin 27.2 PG (26-34); Mean Corpuscular Volume 82.2 fL (80-100); Monocytes Absolute Auto 800 /uL (0-900); Monocytes Percent Auto 7.5 % (3-14); Neutrophils Absolute Auto 7600 /uL (1500-7000); Neutrophils Percent Auto 66.7 % (50-75); Platelet Count 267 X10^3/uL (150-400); Red Blood Cell Count 3.72 X10^6/uL (4.0-5.2); Red Cell Distribution Width 14.1 % (11.6-14.8); White Blood Cell Count 11.4 X10^3/uL (4.5-11.0)
[2021-09-10] MEDS: ZOLPIDEM 5 MG TABLET PO (22:04)
[2021-09-10] MEDS: CALCIUM CARBONATE 500 MG TAB 1000 MG PO (22:04)
[2021-09-10] MEDS: DINOPROSTONE VAG (CERVIDIL) 10 MG VAG (22:04)
[2021-09-10 23:11] VITALS: BP 118/75
[2021-09-10 23:34] LABS: COVID19 -Nasal RAPID Negative (Negative)
--- NOTE | 2021-09-11 07:07 | PM.OBHP.IH.1 ---
OB HPI Date/Time Date of admission: 09/10/21 Date Patient Seen: 09/11/21 Time Patient Seen: 07:30 History of Present Condition Chief complaint: observation of labor TY Calculator Estimated Delivery Date Method Current WG Current Estimate 09/18/21 LMP (Certain) 39w 0d Other Estimates 09/20/21 Ultrasound #1 38w 5d : 2 Para: 1 Narrative: 25-year-old at 39 weeks gestation here for induction due to idiopathic polyhydramnios macrosomia and unstable lie. She received Cervidil last night but sugars are removed at 2:00 a.m. due to painful contractions. This morning fetus was found to be transverse. has been complicated by mild pyelectasis bilaterally without oligohydramnios. She actually went on to develop idiopathic polyhydramnios at 34 weeks. She tested blood sugars which were all normal and reassuring against gestational diabetes. Growth ultrasound was significant for estimated weight at the ninety-fourth percentile at 37 weeks. Fetus was breech at 37 weeks however when she came in for version, he was cephalic. care: good care, initiated at week # (9), number of visits (12) and pounds weight gain (33) Dating criteria OB: LMP confirmed by 1st trimester US Ultrasounds: abnormal US findings (mild bilateral pyelectasis) Abnormal ultrasound findings: Mild bilateral pyelectasis monitored throughout , baby will need follow up renal US in first month of life and again within 6 months of life Polyhydramnios diagnosed at 34 weeks Obstetrical complications: other (Polyhydramnios) Medical complications OB: none Indications Indication for induction OB: other (Polyhydramnios, macrosomia, unstable lie) Preadmission Labs Last OB Lab Results: Blood Type O Positive 09/10/21 21:46 09/10/21 Antibody Screen Negative 09/10/21 21:46 09/10/21 Hematocrit 30.6 % (36-46) L 09/10/21 21:46 09/10/21 Hemoglobin 10.1 g/dL (12.0-16.0) L 09/10/21 21:46 09/10/21 Hepatitis B Surface Antigen Negative s/c (NEGATIVE) 04/29/21 15:40 04/29/21 Hepatitis C Antibody Negative s/c (NEGATIVE) 04/29/21 15:40 04/29/21 Rubella Antibody 29.4 IU/mL (>15) 04/29/21 15:40 04/29/21 Varicella-Zoster IgG Antibody 3738 index (Immune >165) 04/29/21 15:40 04/29/21 Glucose 1 Hour 103 mg/dL (76-139) 06/16/21 11:25 06/16/21 Group B Streptococcus (PCR) Neg for grp b strep 08/25/21 09:40 08/25/21 -: Chlamydia screen: negative, Gonorrhea screen: negative and Urine: negative -: PAP smear: Normal Genetic Screens: Quad screen: Normal External Labs -: Urine: negative Prior (ies) Past Pregnancies Del. Date GA/Weeks Labor Lgth Wt Sex Route Outcome Anesthesia Place Delv Breastfeed Preg Comp Name 03/06/18 40.1 8 7 lb Male vaginal live - full term epidural Ana Duronled X 2 mo : D/C at 11mo post-dates induction Joaquin Jaeger Delivery Date: 03/06/18 Last Updated by: Halina De La Fuente R.N. *Severe nausea and vomiting X 3 months. *Induction : Pictocin. *Tear with Repair. *Luverne fine PP - nothing serious at all. Evaluation Evaluation Baseline heart rate: 130 Variability: Moderate (11-25) monitor accelerations: Present Monitor Decelerations: Absent Contraction Frequency (minutes): 3 Category of Tracing: Reactive Status: Category l Dilation: 1-2 cm Effacement: 40-50% station: -4 Position of cervix: mid Consistency: soft Chen score: 5 PFSH Medical History Anxiety Migraine (spontaneous vaginal delivery) (~03/06/18) Surgical History History of tonsillectomy [place] teeth extracted (~07/2020) Family History Mother Kidney stones FH: migraines Father Trauma Altered renal tissue perfusion Grandmother Cancer Breast cancer FH: migraines Grandfather No problems noted. Grandmother No problems noted. Grandfather No problems noted. 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) Meds Home Medications and Allergies Home Medications Medication Instructions Recorded Confirmed Type prenat.vits,erum,fvy-oeri-jebcm 1 tab PO DAILY 02/10/21 09/10/21 History ondansetron 4 mg disintegrating 4 mg PO TID-QID PRN #30 tab 03/09/21 09/10/21 Rx tablet metoclopramide HCl 10 mg tablet 10 mg PO Q6H PRN #30 tab 04/17/21 09/10/21 Rx (Reglan) promethazine 25 mg tablet 25 mg PO Q4-6H PRN #60 tab 04/29/21 09/10/21 Rx blood sugar diagnostic (Blood #100 ea 08/25/21 09/10/21 Rx Glucose Test) blood-glucose meter #1 ea 08/25/21 09/10/21 Rx lancets #100 ea 08/25/21 09/10/21 Rx Allergies Allergy/AdvReac Type Severity Reaction Status Date / Time No Known Drug Allergies Allergy Verified 03/26/21 11:39 Review of Systems Review of Systems ROS: Yes All systems reviewed with the patient and are negative except as otherwise documented OB Exam Narrative Exam Narrative: Temperature 36.7? blood pressure 109/66 heart rate 88 HENMT Head: normal to inspection Mouth: oral mucosae normal Eyes General: appearance normal, both eyes and all related structures Resp Effort & Inspection: normal respiratory effort Auscultation: clear to auscultation bilaterally Cardio Rate: regular rate Rhythm: regular rhythm Extremities Lower extremity: Yes normal to inspection; No edema Presentation: transverse/shoulder Estimated Weight (lbs): 8 Objective Labs Result Diagrams: 09/10/21 21:46 Labs: Laboratory Results - last 24 hr 09/10/21 09/10/21 09/10/21 21:46 21:46 23:15 WBC 11.4 H RBC 3.72 L Hgb 10.1 L Hct 30.6 L MCV 82.2 MCH 27.2 MCHC 33.1 RDW 14.1 Plt Count 267 Neut % (Auto) 66.7 Lymph % (Auto) 24.7 L [place] % (Auto) 7.5 Eos % (Auto) 0.7 L Baso % (Auto) 0.4 Neut # (Auto) 7600 H Lymph # (Auto) 2800 [place] # (Auto) 800 Eos # (Auto) 100 Baso # (Auto) 0 SARS-CoV-2 (PCR) Negative Blood Type O Positive Antibody Screen Negative Assessment and Plan Assessment and Plan Assessment and Plan narrative: 25-year-old at 39 weeks gestation here for induction due to idiopathic polyhydramnios, suspected macrosomia and unstable lie. She presented last night for Cervidil which was removed at 2:00 a.m. due to painful contractions. This morning infant was found to be transverse with the head on the right side of the abdomen. Dr. Askew was consulted for possible external cephalic version. Patient consented for version and understand risks including potential need for emergency . Consent signed. Patient will be given terbutaline prior to attempted external cephalic version by Dr. Askew. OR is aware.
[2021-09-11] MEDS: TERBUTALINE 1 MG/ML VIAL 0.25 MG SUBCUT (08:06)
[2021-09-11] MEDS: NIFEdipine 10 MG CAPSULE PO ×4 (08:39→09:47)
--- NOTE | 2021-09-11 10:38 | P.PCN_ITS ---
Procedures Date/Time Date of procedure: 09/11/21 Time of procedure: 10:20 General Procedure description: External Cephalic Version: Following informed consent, presentation confirmed to be breech with vertex in RUQ. Clockwise rotation of infant achieved with minimal to moderate force and version to vertex presentation confirmed with ultrasound. FHR reactive/category 1 before and after version. Tolerated well and no complication s experienced. Complications: none
[2021-09-11] MEDS: LACTATED RINGERS 1,000 ML 100 ML IV ×3 (11:13→20:08)
[2021-09-11] MEDS: OXYTOCIN PREMIX 30 UNIT/500 ML PLAST..BAG IV (11:27)
[2021-09-11] MEDS: ONDANSETRON 4 MG/2 ML INJ IV (12:44)
--- NOTE | 2021-09-11 13:19 | PM.OBPNLAB ---
Date/Time Date Patient Seen: 09/11/21 Time Patient Seen: 12:50 Pain Control Pain control: tolerating well Comments: Feeling more uncomfortable with contractions but coping well. Pelvic Exam Dilation (cm): 3 Effacement (%): 50 station: -3 Amniotic membrane status: Intact Contractions Pitocin rate (mU/min): 4 Contraction frequency (min): 2 Status status: Category l Heart Rate Baseline: 130 Monitor Accelerations: Present Monitor Decelerations: Absent Monitor Variability: Moderate Assessment and Plan Assessment: induction ongoing Comments: 25 year old at 39 weeks with polyhydramnios and macrosomia here for induction. She is progressing well on minimal pitocin and the head remains vertex after ECV by Dr. Askew. Given polyhydramnios, appreciate support from Dr. Askew regarding AROM. Updated Dr. Askew with last SVE. He will evaluate for AROM after he finishes surgery.
[2021-09-11] MEDS: ACETAMINOPHEN 325 MG TABLET 650 MG PO (13:33)
[2021-09-11] MEDS: fentaNYL 100 MCG/2 ML INJ 50 MCG IV (14:18)
--- NOTE | 2021-09-11 17:23 | PM.OBPNLAB ---
Date/Time Date Patient Seen: 09/11/21 Time Patient Seen: 17:15 Pelvic Exam Dilation (cm): 5 Effacement (%): 90 station: -1 Amniotic membrane status: Ruptured Comments: AROM performed w/o incident and FSE applied. Clear fluid. Reactive tracing prior to AROM and afterwards. Contractions Contractions on admission: regular Monitor mode: External Pitocin rate (mU/min): 4 Contraction frequency (min): 2 Contraction pattern: Regular Contraction phase: Resting Contraction intensity: Moderate Status status: Category l Heart Rate Baseline: 130 Monitor Accelerations: Present Monitor Decelerations: Absent Monitor Variability: Moderate Assessment and Plan Assessment: active labor Plan: continuous present management
[2021-09-11] MEDS: FENT 2MCG/ML BUPIV 0.125% EPI 200 MCG/100 ML PLAST..BAG 12 MCG EPIDURAL (17:56)
--- NOTE | 2021-09-11 21:44 | PM.OBPRVD ---
Labor & Delivery Delivery date: 09/11/21 Cervical ripening method: per Cervidil protocol Induction method: per pitocin protocol Delivery augmentation: rupture of membranes Delivery monitor: external FHT Route of delivery: L&D Laceration Description: Vaginal - 1st Degree (repaired for hemostasis) Delivery repair: chromic Estimated blood loss (mL): 300 Anesthesia Type: Epidural Narrative: Patient is a 25-year-old at 39 weeks who gave on 09/11/21 at 10/15/08. TY: 09/18/21 Hospital problems: 39 weeks of Polyhydramnios Unstable lie STAGE I: Labor Patient was brought in for induction due to polyhydramnios, unstable lie and suspected macrosomia. She received Cervidil then baby was found to be transverse then breech. She underwent external cephalic version with Dr. Askew which was successful. She then received Pitocin per protocol. Dr. Askew was later able to rupture membranes with copious amounts of clear fluid at 5:12 p.m.. She went on to receive an epidural with excellent pain control. heart tones were category 2 throughout stage I due to variable decelerations with good variability. STAGE II: Delivery Patient was complete at 8:55 p.m. and began pushing at 9:00 p.m.. She went on to deliver at 9:09 p.m.. Infant was vertex and JUAN MIGUEL. There was a tight nuchal cord which was reduced then remainder of infant delivered. was immediately placed on mother's abdomen. Cord was clamped and cut after approximately 1 minute delay. Apgars were 9 and 9. No resuscitation of the required. STAGE III: Placenta/Cord Placenta delivered at 9:14 p.m. after active management and appeared intact with a three-vessel cord. Pitocin bolus given after delivery of placenta. A short first-degree vaginal laceration was repaired due to bleeding. Hemostasis achieved. Fundus was firm below umbilicus after repair. EBL: 300 mL. Needle and sponge counts were correct. The vagina was inspected and no items were left in situ. Patient was doing well with Jim, her and at bedside. Baby 1: Infant gender: Male Presentation: vertex Position: Right Occiput Anterior Placenta delivery description: Spontaneous score (1 min): 9 score (5 min): 9 Plan for aftercare: Routine care
[2021-09-11] MEDS: DERMOPLAST SPRAY 20% 60 ML 1 SPRAY TOP (22:45)
[2021-09-11] MEDS: LANOLIN OINT 7 GM 1 APPLIC TOP (22:46)
[2021-09-12] MEDS: ACETAMINOPHEN 325 MG TABLET 650 MG PO ×2 (01:17→10:15)
[2021-09-12] MEDS: IBUPROFEN 600 MG TABLET PO ×2 (01:18→10:15)
[2021-09-12] MEDS: PRENATAL VIT,CALC/IRON/FOLIC 1 TABLET 1 TAB PO (10:13)
[2021-09-12] MEDS: DOCUSATE 100 MG CAPSULE PO (10:13)
--- NOTE | 2021-09-12 11:26 | PM.OBDS.1 ---
Discharge Providers Provider Date of admission: 09/10/21 19:45 Discharge Date: 09/12/21 Primary care physician: Brynn Amor DO Consults: 09/12/21 21:50 Consult to Quality Assurance Intern Routine Comment: Discharge provider: Brynn Amor DO Summary Hospital Course Date Patient Seen: 09/12/21 Time Patient Seen: 12:20 Diagnoses: 39 weeks of Polyhydramnios Breech presentation External cephalic version Spontaneous vaginal delivery Hospital Course: Patient is a 25-year-old after uncomplicated spontaneous vaginal delivery at 39 weeks on 09/11/21. She was brought in for induction due to polyhydramnios, suspected macrosomia and unstable lie. She received Cervidil however the following morning was found to have the fetus in the transverse to breech presentation. She underwent successful external cephalic version with Dr. Askew. She then received Pitocin per protocol. Dr. Askew was again consulted for amniotomy due to polyhydramnios. Amniotomy was safely performed with copious amounts of clear fluid. Patient progressed well after amniotomy and went on to receive an epidural. Vaginal delivery was uncomplicated. A very small first-degree vaginal laceration was repaired due to bleeding with good hemostasis. course has been uncomplicated. She is ambulating, voiding, passing flatus and tolerating a diet. Vaginal bleeding is light and pain controlled with ibuprofen and Tylenol only. is going well. No issues in the . Patient was advised to call for fevers, severe pain or bleeding through more than a pad an hour. She will follow-up in clinic in 6 weeks. Peripartum Data Delivery Method: Natural Vaginal Laceration Description: Vaginal - 1st Degree [place] 1: Gender: Male Disposition of : home Status at Discharge Cognitive/behavioral status at discharge: at baseline, oriented Functional status at discharge: independent ambulation Overall status at discharge: patient is progressing back to baseline Time Spent with Patient Time attestation: Total time spent providing and/or coordinating discharge services: Time spent: Less than 30 minutes Objective Labs Result Diagrams: 09/10/21 21:46 Exam Vital Signs (past 8 hours): Temperature 98.4? blood pressure 117/76 heart rate 80 General: Awake and alert, no acute distress. HEENT: NCAT, EOMI, moist oral mucosa CV: Regular rate and rhythm, no murmurs, rubs or gallops Lungs: CTAB, no wheezes, rales, or rhonchi Abdomen: Soft, nontender; bowel tones active; uterus firm 1 cm below umbilicus Extremities: Warm, no edema Discharge Plan Discharge Plan Patient Disposition: Home Discharge orders & Medications Prescriptions: New docusate sodium 100 mg Capsule 100 mg PO DAILY Qty: 30 0RF ibuprofen 600 mg Tablet 600 mg PO Q6HR PRN (Reason: Pain, Mild (1-3)) Qty: 30 0RF Continued prenat.vits,eurm,aqf-hwsh-eqsep Tablet 1 tab PO DAILY 0RF Discontinued metoclopramide HCl [Reglan] 10 mg tablet 10 mg PO Q6H PRN (Reason: nausea and vomiting) Qty: 30 0RF (DME) lancets Misc See Rx Instructions .ROUTE .MEDSUPPLY Qty: 100 11RF Rx Instructions: Use to test blood sugar 4 times daily as directed (DME) Blood Glucose Test Strip See Rx Instructions .ROUTE .MEDSUPPLY Qty: 100 11RF Rx Instructions: Use to test blood sugar 4 times daily as directed (DME) blood-glucose meter Misc See Rx Instructions .ROUTE .MEDSUPPLY Qty: 1 0RF Rx Instructions: Use to test blood sugar 4 times daily as directed ondansetron 4 mg tablet,disintegrating 4 mg PO TID-QID PRN (Reason: nausea and vomiting) Qty: 30 0RF promethazine 25 mg tablet 25 mg PO Q4-6H PRN (Reason: nausea and vomiting) Qty: 60 0RF Follow up/Referrals: Brynn Amor DO [Primary Care Provider] - 6 Weeks Diet/Activity/Treatments Diet: Diet as Tolerated Skin/Wound/Dressing Care Report to your healthcare provider any signs of infection, such as:: chills, fever, night sweats, increased pain, unusual drainage and unusual redness Visit Report/Discharge Packet Visit Report Forms: Patient Portal/API, Stroke Signs & Symptoms Discharge Data Primary Care Provider: Brynn Amor
[2021-09-12 13:59] VITALS: BP 118/75; PULSE 88; RESP 18; TEMP 36.9
== END 2021-09-12 18:08 | disposition home or self-care (01) | DRG 807 ==
PROVIDERS: Admitting Provider Family Medicine; PCP Family Medicine; Referring Provider Family Medicine; Visit Provider Family Medicine
DX: O40.3XX0 Polyhydramnios, third trimester, not applicable or unspecified (principal); Z37.0 Single live birth; Z3A.39 39 weeks gestation of pregnancy; O70.0 First degree perineal laceration during delivery; O32.8XX0 Maternal care for other malpresentation of fetus, not applicable or unspecified; O33.5XX0 Maternal care for disproportion due to unusually large fetus, not applicable or unspecified; Z20.822 Contact with and (suspected) exposure to COVID-19
CPT/HCPCS: 01967; 36415; 59400; 85025; 86850; 86900; 86901; 87635; C9803; G0379; J2405; J2590; J3010